=== PATIENT | male | born 1985 | race Caucasian/White ===

== ENCOUNTER 2022-04-02 21:21 | Emergency (ER) | payer SELFPAY ==
[2022-04-02] MEDS ORDERED: METOCLOPRAMIDE 10 MG/2mL INJ ONE (22:32)
[2022-04-02] MEDS ORDERED: MECLIZINE HCL 12.5 MG TAB ONE (22:33)
[2022-04-02] MEDS ORDERED: NA CHLORIDE 0.9% 1,000 ML ONE (22:33)
[2022-04-02 22:56] LABS: Absolute Lymphocytes (CBC) 2.1 K/uL (0.7-4.9); Hematocrit 46.7 % (39.6-49.0); Lymphocytes % 27.9 % (15.3-44.8); MCV 91.4 fL (80-100); MPV 8.1 fL (7.6-11.3); RBC Red Blood Cell Count 5.11 M/uL (4.33-5.43)
--- NOTE | 2022-04-02 23:11 | EDPHYS ---
Physician Documentation [facility] Name: Atul Cintron Age: 36 yrs Sex: Male : 1985 Arrival Date: 04/02/2022 Time: 21:24 Bed 30 Private MD: ED Physician Taran Ortega HPI: 04/02 22:15 This 36 yrs old Male presents to ER via Ambulatory with complaints of Dizziness. cp 22:15 The patient presents with dizziness, feeling faint, lightheadedness, sense of spinning. cp Onset: The symptoms/episode began/occurred 3 day(s) ago. Historical: - Allergies: 21:57 No Known Allergies; vc1 - Home Meds: 21:57 None [Active]; vc1 - PMHx: 21:57 PTSD; vc1 - PSHx: 21:57 None; vc1 - Immunization history:: Adult Immunizations up to date, Client reports receiving the 2nd dose of the Covid vaccine, Flu vaccine is up to date. - Social history:: Smoking status: Patient reports the use of cigarette tobacco products, smokes one pack cigarettes per day. Exam: 22:17 ECG was reviewed by the Attending Physician. cp Vital Signs: 21:49 BP 141 / 89; Pulse 63; Resp 17; Temp 98.0; Pulse Ox 99% on R/A; Weight 81.65 kg; Height vc1 5 ft. 10 in. (177.80 cm); Pain 0/10; 22:42 BP 120 / 73 LA Supine (auto/lg); Pulse 58; Resp 18; Pulse Ox 100% on R/A; jb4 22:43 BP 133 / 85 LA Sitting (auto/lg); Pulse 58; Resp 16; Pulse Ox 100% on R/A; jb4 22:46 BP 149 / 84 LA Standing (auto/lg); Pulse 65; Resp 16; Pulse Ox 100% on R/A; jb4 21:49 Body Mass Index 25.83 (81.65 kg, 177.80 cm) vc1 MDM: 21:39 Patient medically screened. cp 23:12 ED course: VSS. Patient requesting discharge at this time and refuses CT of head and to cp wait for results of pending labs. At this time, CBC resulted and wnl. 04/02 22:11 Order name: Basic Metabolic Panel cp 04/02 22:11 Order name: CBC with Diff; Complete Time: 23:09 cp 04/02 23:09 Interpretation: Reviewed. cp 04/02 22:11 Order name: D-Dimer cp 04/02 22:11 Order name: LFT's cp 04/02 22:11 Order name: Magnesium 04/02 22:11 Order name: NT PRO-BNP 04/02 22:11 Order name: PT-INR 04/02 22:11 Order name: Troponin HS 04/02 22:11 Order name: XRAY Chest (1 view) 04/02 22:11 Order name: ETOH Level cp 04/02 22:11 Order name: UDS cp 04/02 22:11 Order name: Orthostatics; Complete Time: 22:53 cp 04/02 22:11 Order name: EKG; Complete Time: 22:12 cp 04/02 22:11 Order name: Cardiac monitoring; Complete Time: 22:21 cp 04/02 22:11 Order name: EKG - Nurse/Tech; Complete Time: 22:20 04/02 22:11 Order name: IV Saline Lock; Complete Time: 22:37 cp 04/02 22:11 Order name: Labs collected and sent; Complete Time: 22:37 cp 04/02 22:11 Order name: O2 Per Protocol; Complete Time: 22:20 cp 04/02 22:11 Order name: O2 Sat Monitoring; Complete Time: 22:20 cp EC:17 Rate is 58 beats/min. Rhythm is regular. [place] interval is normal. QRS interval is normal. cp QT interval is normal. T waves are Inverted in leads III, aVR. Interpreted by me. Reviewed by me. Administered Medications: 22:29 Drug: Meclizine 25 mg Route: PO; jb4 23:22 Follow up: Response: No adverse reaction jb4 22:52 Drug: NS 0.9% 1000 ml Route: IV; Rate: 1 bolus; Site: right antecubital; jb4 23:22 Follow up: Response: No adverse reaction; IV Status: Order to discontinue infusion; IV jb4 Intake: 500ml 22:52 Drug: Reglan (metoCLOPramide) 10 mg Route: IVP; Site: right antecubital; jb4 23:22 Follow up: Response: No adverse reaction jb4 Disposition Summary: 04/02/22 23:11 Discharge Ordered Location: Home cp Problem: new cp Symptoms: are unchanged cp Condition: Stable cp Diagnosis - Dizziness and giddiness cp Followup: cp - With: Private Physician - When: 1 - 2 days - Reason: Recheck today's complaints Discharge Instructions: - Discharge Summary Sheet cp - Dizziness cp Forms: - Medication Reconciliation Form cp - Thank You Letter cp - Antibiotic Education cp - Prescription Opioid Use cp Prescriptions: - Meclizine 25 mg Oral Tablet - take 1 tablet by ORAL route every 8 hours As needed; 30 tablet; Refills: 0, cp Product Selection Permitted - Zofran 4 mg Oral Tablet - take 1 tablet by ORAL route every 12 hours As needed; 20 tablet; Refills: 0, cp Product Selection Permitted Signatures: Dispatcher [employer] EDMS Sebastián Valentin PA PA cp Bryson, James, RN RN jb4 Denia Rajput RN RN vc1 Corrections: (The following items were deleted from the chart) 21:57 21:57 PMHx: None; vc1 vc1
--- NOTE | 2022-04-02 23:11 | ER ---
Nurse's Notes [facility] Name: Atul Cintron Age: 36 yrs Sex: Male : 1985 Arrival Date: 04/02/2022 Time: 21:24 Bed 30 Private MD: Diagnosis: Dizziness and giddiness Presentation: 04/02 21:49 Chief complaint: Patient states: "For the past couple of days I have felt really dizzy vc1 and lightheaded almost like I am going to pass out.". Coronavirus screen: Vaccine status: Patient reports being unvaccinated. At this time, the client does not indicate any symptoms associated with coronavirus-19. Ebola Screen: No symptoms or risks identified at this time. Initial Sepsis Screen: Does the patient meet any 2 criteria? No. Patient's initial sepsis screen is negative. Does the patient have a suspected source of infection? No. Patient's initial sepsis screen is negative. Risk Assessment: Do you want to hurt yourself or someone else? Patient reports no desire to harm self or others. Onset of symptoms is unknown. 21:49 Method Of Arrival: Ambulatory vc1 21:49 Acuity: LEEANNA 4 vc1 Triage Assessment: 21:59 General: Appears in no apparent distress. comfortable, Behavior is cooperative, vc1 anxious. Pain: Denies pain. Neuro: Level of Consciousness is awake, alert, obeys commands, Oriented to person, place, time, situation, Appropriate for age. Cardiovascular: Reports lightheadedness, Capillary refill < 3 seconds Patient's skin is warm and dry. Respiratory: Airway is patent Respiratory effort is even, unlabored, Respiratory pattern is regular, symmetrical. GI: No deficits noted. : No deficits noted. Derm: No deficits noted. Musculoskeletal: No deficits noted. Historical: - Allergies: 21:57 No Known Allergies; vc1 - Home Meds: 21:57 None [Active]; vc1 - PMHx: 21:57 PTSD; vc1 - PSHx: 21:57 None; vc1 - Immunization history:: Adult Immunizations up to date, Client reports receiving the 2nd dose of the Covid vaccine, Flu vaccine is up to date. - Social history:: Smoking status: Patient reports the use of cigarette tobacco products, smokes one pack cigarettes per day. Screenin:58 Abuse screen: Denies threats or abuse. Nutritional screening: No deficits noted. vc1 Tuberculosis screening: No symptoms or risk factors identified. Fall Risk None identified. Assessment: 23:10 Reassessment: Patient appears in no apparent distress at this time. Patient and/or jb4 family updated on plan of care and expected duration. Pain level reassessed. Patient is alert, oriented x 3, equal unlabored respirations, skin warm/dry/pink. 23:20 Reassessment: Pt verbalized desire to leave prior to the completion of testing and jb4 treatment. Provider notified, informed patient that symptoms could return or worsen and that not all the test had resulted. Pt continues to want to leave, verbally acknowledged risk and signed AMA form. Vital Signs: 21:49 BP 141 / 89; Pulse 63; Resp 17; Temp 98.0; Pulse Ox 99% on R/A; Weight 81.65 kg; Height vc1 5 ft. 10 in. (177.80 cm); Pain 0/10; 22:42 BP 120 / 73 LA Supine (auto/lg); Pulse 58; Resp 18; Pulse Ox 100% on R/A; jb4 22:43 BP 133 / 85 LA Sitting (auto/lg); Pulse 58; Resp 16; Pulse Ox 100% on R/A; jb4 22:46 BP 149 / 84 LA Standing (auto/lg); Pulse 65; Resp 16; Pulse Ox 100% on R/A; jb4 21:49 Body Mass Index 25.83 (81.65 kg, 177.80 cm) vc1 ED Course: 21:24 Patient arrived in ED. bp1 21:37 Sebastián Valentin PA is PHCP. cp 21:37 Taran Ortega MD is Attending Physician. cp 21:57 Triage completed. vc1 21:58 Arm band placed on right wrist. vc1 22:13 Waldo Chen, DIMPLE is Primary Nurse. jb4 22:20 EKG done, by ED staff, reviewed by Sebastián MARTINEZ. wm 22:36 Inserted saline lock: 20 gauge in right antecubital area, using aseptic technique. wm Blood collected. 22:37 Initial lab(s) drawn, by mi, sent to lab. wm 22:38 Safety checks: Door open/sign placed on door:. Call light in reach. Side rails up X2. wm 22:38 Basic Metabolic Panel Sent. wm 22:38 CBC with Diff Sent. wm 22:38 LFT's Sent. wm 22:38 D-Dimer Sent. wm 22:38 Magnesium Sent. wm 22:38 NT PRO-BNP Sent. wm 22:38 PT-INR Sent. wm 22:38 Troponin HS Sent. wm 22:39 XRAY Chest (1 view) In Process Unspecified. EDMS 23:21 No provider procedures requiring assistance completed. IV discontinued, intact, jb4 bleeding controlled, No redness/swelling at site. Pressure dressing applied. Administered Medications: 22:29 Drug: Meclizine 25 mg Route: PO; jb4 23:22 Follow up: Response: No adverse reaction jb4 22:52 Drug: NS 0.9% 1000 ml Route: IV; Rate: 1 bolus; Site: right antecubital; jb4 23:22 Follow up: Response: No adverse reaction; IV Status: Order to discontinue infusion; IV jb4 Intake: 500ml 22:52 Drug: Reglan (metoCLOPramide) 10 mg Route: IVP; Site: right antecubital; jb4 23:22 Follow up: Response: No adverse reaction jb4 Intake: 23:22 IV: 500ml; Total: 500ml. jb4 Outcome: 23:11 Discharge ordered by . fara 23:21 AMA AMA form signed jb4 23:21 Condition: improved 23:21 Discharge instructions given to patient, Instructed on discharge instructions, follow up and referral plans. medication usage, Demonstrated understanding of instructions, follow-up care, medications, Prescriptions given X 2. 23:22 Patient left the ED. jb4 Signatures: Dispatcher [employer] EDIL Sebastián Valentin PA PA cp Bryson, James, RN RN jb4 Iris Joyner Wendy wm Calcote, Vanessa RN RN vc1 Corrections: (The following items were deleted from the chart) 21:57 21:57 PMHx: None; vc1 vc1
[2022-04-02 23:26] LABS: ALT/SGPT 52 U/L (12-78); Albumin 4.1 g/dL (3.4-5.0); Alkaline Phosphatase 105 U/L (45-117); BUN Blood Urea Nitrogen 21 mg/dL (7-18); Bicarbonate 26 mmol/L (21-32); Bilirubin Total 0.4 mg/dL (0.2-1.0); Glomerular Filtration Rate 62 ml/min (=/>90); Glucose Level 105 mg/dL (74-106); NT PRO-BNP 21 pg/mL (<125); Protein, Total 7.4 g/dL (6.4-8.2); Sodium Level 138 mmol/L (136-145)
[2022-04-02 23:27] LABS: AST/SGOT 29 U/L (15-37); Bilirubin Direct < 0.1 mg/dL (0-0.2); Magnesium 2.2 mg/dL (1.8-2.4); Protime INR 1.03; Troponin High Sensitivity < 3.0 pg/mL (<58.9)
[2022-04-02 23:36] VITALS: TEMP 98
[2022-04-02 23:38] VITALS: O2SAT 100
[2022-04-02 23:43] VITALS: BP 149/84
--- NOTE | 2022-04-03 11:07 | EKG ---
Test Date: 2022-04-02 Test Time: 22:12:23 Parts Sales Manager: MEASUREMENT RESULTS: Intervals: Rate: 58 IL: 142 QRSD: 88 QT: 420 QTc: 412 [place]: P: 47 IL: 142 QRS: 79 T: 31 INTERPRETIVE STATEMENTS: Sinus bradycardia Otherwise normal ECG No previous ECG available for comparison Electronically Signed On 04-03-22 11:05:53 CDT by Yosef Mcduffie
--- NOTE | 2022-04-03 13:52 | RAD REPORT ---
EXAM DESCRIPTION: RAD - Chest Single View - 04/02/2022 10:38 pm COMPARISON: None. CLINICAL HISTORY: [facility] dizziness FINDINGS: A single AP view of the chest demonstrates a normal cardiomediastinal silhouette. No pneumothorax or pleural effusion. No consolidation or pulmonary edema. Osseous structures are intact. IMPRESSION: No acute chest process. Electronically signed by: Nader Taylor MD 04/03/2022 12:31 AM CDT Due to temporary technical issues with the PACS/Fluency reporting system, reports are being signed by the in house radiologists without review as a courtesy to insure prompt reporting. The interpreting radiologist is fully responsible for the content of the report.
== END 2022-04-02 23:22 | disposition home or self-care (01) ==
LOC: ER 21:21
DX: R42 Dizziness and giddiness (principal); F17.210 Nicotine dependence, cigarettes, uncomplicated
CPT/HCPCS: 36415; 71045; 80048; 80076; 80320; 83735; 83880; 84484; 85025; 85379; 85610; 93005; J2765; J7030; J8597

== ENCOUNTER 2023-01-24 16:02 | Inpatient (IN) | payer OTHER ==
[2023-01-24] MEDS ORDERED: NA CHLORIDE 0.9% 250 ML ONE (17:07)
[2023-01-24] MEDS ORDERED: NA CHLORIDE 0.9% 1,000 ML ONE (17:07)
[2023-01-24] MEDS ORDERED: VANCOMYCIN 1 GM/VIAL ONE (17:07)
[2023-01-24 17:21] LABS: Lymphocytes % 30.3 % (15.3-44.8); MCV 90.8 fL (80-100); RBC Red Blood Cell Count 4.85 M/uL (4.33-5.43)
[2023-01-24 17:30] LABS: Potassium 3.7 mEq/L (3.5-5.1)
--- NOTE | 2023-01-24 17:57 | EDPHYS ---
Physician Documentation [facility] Name: Joe Cintron Age: 37 yrs Sex: Male : 1985 Arrival Date: 01/24/2023 Time: 16:02 Bed 16 Private MD: ED Physician Boni Cuellar HPI: 01/24 17:51 This 37 yrs old Male presents to ER via Ambulatory with complaints of Leg Pain. kb 17:51 The patient presents with cellulitis of the left calf. Description: erythematous, hot, kb swollen. Onset: The symptoms/episode began/occurred 2 day(s) ago. Possible cause(s): abrasion from screw. Associated signs and symptoms: Pertinent positives: drainage, erythema, swelling. Modifying factors: the symptoms are alleviated by nothing, the symptoms are aggravated by nothing. Severity of symptoms: At their worst the symptoms were moderate, in the emergency department the symptoms are unchanged. The patient has not experienced similar symptoms in the past. The patient has been recently seen at the [facility] Emergency Department, last week. Patient's great left medial calf on a screw 2 days ago. States area has been progressively getting more red, swollen with exudate to abrasions. Patient has been on Doxy and Keflex for 7 days for cellulitis of hand which is better.. Historical: - Allergies: 16:28 No Known Allergies; cm9 - PMHx: 16:28 PTSD; cm9 - PSHx: 16:28 Abdomen - foreign body removal; cm9 - Immunization history:: Client reports having NOT received the Covid vaccine. - Social history:: Smoking status: Patient reports the use of cigarette tobacco products, smokes one pack cigarettes per day. Patient/guardian denies using alcohol. ROS: 17:18 Constitutional: Negative for fever, chills, and weight loss. kb 17:18 Skin: Positive for abrasion(s), cellulitis, of the left calf. 17:18 All other systems are negative. Exam: 17:19 Constitutional: This is a well developed, well nourished patient who is awake, alert, kb and in no acute distress. Head/Face: Normocephalic, atraumatic. ENT: Moist Mucous membranes Cardiovascular: Regular rate and rhythm with a normal S1 and S2. No gallops, murmurs, or rubs. No pulse deficits. Respiratory: Respirations even and unlabored. No increased work of breathing. Talking in full sentences Abdomen/GI: Soft, non-tender. No distention MS/ Extremity: Pulses equal, no cyanosis. Neurovascular intact. Full, normal range of motion. Neuro: Awake and alert, GCS 15, oriented to person, place, time, and situation. Moves all extremities. Normal gait. 17:19 Skin: cellulitis, that is moderate, on the left calf. Vital Signs: 16:24 BP 145 / 88; Pulse 102; Resp 18; Temp 98.2; Pulse Ox 96% on R/A; Weight 90.72 kg; cm9 Height 5 ft. 10 in. ; Pain 1/10; 17:15 BP 114 / 66; Pulse 62; Resp 16; Pulse Ox 97% on R/A; eh3 18:15 BP 128 / 73; Pulse 67; Resp 18; Pulse Ox 98% on R/A; eh3 19:15 BP 148 / 79; Pulse 64; Resp 18; Pulse Ox 95% on R/A; eh3 20:15 BP 160 / 93; Pulse 55; Resp 18; Pulse Ox 97% on R/A; eh3 21:15 BP 149 / 94; Pulse 52; Resp 18; Pulse Ox 98% on R/A; vc1 23:00 BP 138 / 74; Pulse 73; Resp 17; Pulse Ox 99% ; vc1 16:24 Body Mass Index 28.70 (90.72 kg, 177.8 cm) cm9 16:24 Pain Scale: Adult cm9 MDM: 16:10 Patient medically screened. kb 17:19 Data reviewed: vital signs, nurses notes. kb 17:19 Differential diagnosis: abscess, allergic reaction, cellulitis. kb 17:50 Consideration of Admission/Observation Patient was admitted/placed on observation. kb Management of patient was discussed with the following: Hospitalist: Eddy EM accepts pt for admission under Dr Ortega. Counseling: I had a detailed discussion with the patient and/or guardian regarding: the historical points, exam findings, and any diagnostic results supporting the discharge/admit diagnosis, lab results, the need for further work-up and treatment in the hospital. 01/24 16:27 Order name: CBC with Diff; Complete Time: 17:25 kb 01/24 16:27 Order name: Basic Metabolic Panel; Complete Time: 17:32 kb 01/24 16:27 Order name: Lactate w/ 2H reflex if indic.; Complete Time: 17:38 kb 01/24 16:27 Order name: Blood Culture Adult (2) kb 01/25 02:57 Order name: CBC with Automated Diff EDNC 01/25 03:12 Order name: Basic Metabolic Panel EDNC 01/25 03:29 Order name: Hemoglobin A1c EDNC 01/25 13:24 Order name: Wound Culture EDNC 01/24 16:27 Order name: IV Start; Complete Time: 17:24 kb Administered Medications: 17:15 Drug: NS 0.9% IV 1000 ml Route: IV; Rate: 1000 ml; Site: left antecubital; 3 18:30 Follow up: IV Status: Completed infusion; IV Intake: 1000ml eh3 17:30 Drug: vancoMYCIN IVPB 1 grams Route: IVPB; Infused Over: 2 hrs; Site: left antecubital; eh3 19:30 Follow up: Response: No adverse reaction; IV Status: Completed infusion; IV Intake: eh3 250ml Disposition: 19:30 Co-signature as Attending Physician, Boni GUTIÉRREZ was immediately available on-site ms3 in the Emergency Department for consultation in the care of the patient. Disposition Summary: 01/24/23 17:57 Hospitalization Ordered Hospitalization Status: Inpatient Admission kb Condition: Stable kb Problem: new kb Symptoms: are unchanged kb Bed/Room Type: Standard kb Provider: Hugh Peralta(01/24/23 18:48) jl7 [facility] 12[facility]31[facility] eb Room Assignment: [facility](01/25/23 12:31) eb Diagnosis - Cellulitis of left lower limb - Failed outpatient therapy(01/24/23 17:57) kb Forms: - Medication Reconciliation Form kb - SBAR form kb Signatures: Dispatcher [employer] EDMS Rosi Cortez FNP-C FNP-Katie Pierce, RN Vic Enciso RN RN jl7 Padmini Guerrero Marcus, DO DO ms3 Becki Lester RN RN 3 Megan Curry, RN RN cm9 Corrections: (The following items were deleted from the chart) 17:57 17:57 Cellulitis of left lower limb kb kb 18:48 17:57 Iker Ortega kb jl7 20:23 17:57 kb cg 20:43 20:23 415 cg cg 20:47 17:57 Telemetry/[facility] (Inpatient) kb cg 20:47 20:43 cg cg 01/25 12:31 01/24 20:47 BR ER HOLD cg eb 01/25 12:01/24 20:47 ERHOLD- cg eb
--- NOTE | 2023-01-24 17:57 | ER ---
Nurse's Notes [facility] Name: Joe Cintron Age: 37 yrs Sex: Male : 1985 Arrival Date: 01/24/2023 Time: 16:02 Bed 16 Private MD: Diagnosis: Cellulitis of left lower limb-Failed outpatient therapy Presentation: 01/24 16:24 Chief complaint: Patient states: Pt reports left medial calf abrasion caused by leg cm9 getting caught on a screw three days ago; noted spread of redness and warmth from abrasion site. Coronavirus screen: Vaccine status: Patient reports being unvaccinated. At this time, the client does not indicate any symptoms associated with coronavirus-19. Ebola Screen: No symptoms or risks identified at this time. Initial Sepsis Screen: Does the patient meet any 2 criteria? No. Patient's initial sepsis screen is negative. Does the patient have a suspected source of infection? No. Patient's initial sepsis screen is negative. Risk Assessment: Do you want to hurt yourself or someone else? Patient reports no desire to harm self or others. Onset of symptoms was January 24, 2023. 16:24 Method Of Arrival: Ambulatory 9 16:24 Acuity: LEEANNA 3 cm9 Triage Assessment: 16:28 General: Appears in no apparent distress. comfortable, Behavior is calm, cooperative. cm9 Pain: Pain currently is 1 out of 10 on a pain scale. Neuro: Level of Consciousness is awake, alert, obeys commands, Oriented to person, place, time, situation. Cardiovascular: Capillary refill < 3 seconds Patient's skin is warm and dry. Respiratory: Airway is patent Respiratory effort is even, unlabored. Derm:. Musculoskeletal: Range of motion: intact in all extremities, Swelling present in left leg. Injury Description: Laceration sustained to left calf was sustained 3 days. Historical: - Allergies: 16:28 No Known Allergies; cm9 - PMHx: 16:28 PTSD; cm9 - PSHx: 16:28 Abdomen - foreign body removal; cm9 - Immunization history:: Client reports having NOT received the Covid vaccine. - Social history:: Smoking status: Patient reports the use of cigarette tobacco products, smokes one pack cigarettes per day. Patient/guardian denies using alcohol. Screenin:45 [facility] ED Fall Risk Assessment (Adult) Score/Fall Risk Level 0 - 2 = Low Risk. Abuse eh3 screen: Denies threats or abuse. Denies injuries from another. Nutritional screening: No deficits noted. Tuberculosis screening: No symptoms or risk factors identified. Assessment: 16:45 General: Appears in no apparent distress. comfortable, Behavior is calm, cooperative, eh3 appropriate for age. Pain: Complains of pain in left calf. Neuro: Level of Consciousness is awake, alert, obeys commands, Oriented to person, place, time, situation. Cardiovascular: Capillary refill < 3 seconds Patient's skin is warm and dry. Respiratory: Airway is patent Respiratory effort is even, unlabored, Respiratory pattern is regular, symmetrical. GI: Abdomen is round non-distended. : No signs and/or symptoms were reported regarding the genitourinary system. EENT: No signs and/or symptoms were reported regarding the EENT system. Derm: Skin is healthy with good turgor, Skin is pink, warm \T\ dry. Musculoskeletal: Circulation, motion, and sensation intact. Injury Description: Laceration sustained to left calf is 2.6 to 7.5 cm long, not bleeding, was sustained 4 days ago. 17:15 Reassessment: Patient appears in no apparent distress at this time. Patient and/or eh3 family updated on plan of care and expected duration. Pain level reassessed. Patient is alert, oriented x 3, equal unlabored respirations, skin warm/dry/pink. 18:15 Reassessment: Patient appears in no apparent distress at this time. Patient and/or eh3 family updated on plan of care and expected duration. Pain level reassessed. Patient is alert, oriented x 3, equal unlabored respirations, skin warm/dry/pink. 19:15 Reassessment: Patient appears in no apparent distress at this time. Patient and/or eh3 family updated on plan of care and expected duration. Pain level reassessed. Patient is alert, oriented x 3, equal unlabored respirations, skin warm/dry/pink. 20:15 Reassessment: Patient appears in no apparent distress at this time. Patient and/or eh3 family updated on plan of care and expected duration. Pain level reassessed. Patient is alert, oriented x 3, equal unlabored respirations, skin warm/dry/pink. 21:15 Reassessment: Patient appears in no apparent distress at this time. Patient and/or vc1 family updated on plan of care and expected duration. Pain level reassessed. Patient is alert, oriented x 3, equal unlabored respirations, skin warm/dry/pink. 22:00 Reassessment: Patient and/or family updated on plan of care and expected duration. Pain vc1 level reassessed. Patient is alert, oriented x 3, equal unlabored respirations, skin warm/dry/pink. 23:00 Reassessment: Patient and/or family updated on plan of care and expected duration. Pain vc1 level reassessed. Patient is alert, oriented x 3, equal unlabored respirations, skin warm/dry/pink. 01/25 12:35 Reassessment: called 2nd and spoke to Carrie, she will inform the nurse taking the kr3 patient and have them call me back, they do not have a charge nurse today. Vital Signs: 01/24 16:24 BP 145 / 88; Pulse 102; Resp 18; Temp 98.2; Pulse Ox 96% on R/A; Weight 90.72 kg; cm9 Height 5 ft. 10 in. ; Pain 1/10; 17:15 BP 114 / 66; Pulse 62; Resp 16; Pulse Ox 97% on R/A; eh3 18:15 BP 128 / 73; Pulse 67; Resp 18; Pulse Ox 98% on R/A; eh3 19:15 BP 148 / 79; Pulse 64; Resp 18; Pulse Ox 95% on R/A; eh3 20:15 BP 160 / 93; Pulse 55; Resp 18; Pulse Ox 97% on R/A; eh3 21:15 BP 149 / 94; Pulse 52; Resp 18; Pulse Ox 98% on R/A; vc1 23:00 BP 138 / 74; Pulse 73; Resp 17; Pulse Ox 99% ; vc1 16:24 Body Mass Index 28.70 (90.72 kg, 177.8 cm) cm9 16:24 Pain Scale: Adult cm9 ED Course: 15:20 Second set of blood cultures drawn by me. tm3 16:04 Patient arrived in ED. ts1 16:10 Rosi Cortez FNP-C is PHCP. kb 16:10 Boni Cuellar DO is Attending Physician. kb 16:27 Triage completed. cm9 16:28 Arm band placed on left wrist. cm9 16:45 Patient has correct armband on for positive identification. Bed in low position. Call 3 light in reach. Side rails up X2. Adult w/ patient. Pulse ox on. NIBP on. Door closed. Noise minimized. Lights dimmed. Warm blanket given. 16:59 Becki Lester, RN is Primary Nurse. 3 17:00 Initial lab(s) drawn, by me, sent to lab. First set of blood cultures drawn by me. tm3 Inserted saline lock: 22 gauge in left antecubital area, using aseptic technique. 17:56 Iker Ortega MD is Hospitalizing Provider. kb 18:48 Hugh Peralta MD is Hospitalizing Provider. jl7 23:40 No provider procedures requiring assistance completed. Patient admitted, IV remains in vc1 place. 01/25 13:48 Report given to DIMPLE Cedeño 2nd floor. kr3 Administered Medications: 01/24 17:15 Drug: NS 0.9% IV 1000 ml Route: IV; Rate: 1000 ml; Site: left antecubital; 3 18:30 Follow up: IV Status: Completed infusion; IV Intake: 1000ml 3 17:30 Drug: vancoMYCIN IVPB 1 grams Route: IVPB; Infused Over: 2 hrs; Site: left antecubital; eh3 19:30 Follow up: Response: No adverse reaction; IV Status: Completed infusion; IV Intake: eh3 250ml Medication: 23:40 VIS not applicable for this client. vc1 Intake: 18:30 IV: 1000ml; Total: 1000ml. eh3 19:30 IV: 250ml; Total: 1250ml. 3 Outcome: 17:57 Decision to Hospitalize by Provider. kb 23:40 Admitted to ER Hold. Please see [facility] for further documentation. vc1 23:40 Condition: good 23:40 Instructed on the need for admit. 01/25 13:49 Patient left the ED. kr3 Signatures: Rosi Cortez, SALES AND MARKETING DIRECTOR-C SALES AND MARKETING DIRECTOR-Ckb Spencer Bhat 3 Vic Pettit RN RN jl7 Denia Rajput RN RN 1 Becki Lester, DIMPLE RN 3 Tanja Ni RN RN kr3 Megan Curry RN RN cm9 Brenda Dotson PAS PAS ts1
--- NOTE | 2023-01-24 19:41 | P.HP ---
Certification for Inpatient Patient admitted to: Observation With expected LOS: <2 Midnights Patient will require the following post-hospital care: None Practitioner: I am a practitioner with admitting privileges, knowledge of patient current condition, hospital course, and medical plan of care. Services: Services provided to patient in accordance with Admission requirements found in Title 42 Section 412.3 of the Code of Federal Regulations Patient History Date of Service: 01/24/23 Reason for admission: Left lower extremity cellulitis History of Present Illness: 37-year-old male with history of PTSD presents emergency department with concern for infection of his left lower extremity. He was seen here on 01/19/2023 for injury to his hand, stung with catfish shea. At that time he was placed on antibiotics doxycycline/Keflex which she has been taking since then. On Friday he scraped his left medial calf on a table, 2 to 3 days ago he noticed significant erythema, increasing pain and streaking from the area, he has been on the antibiotics Keflex and doxycycline during that time. He presented to the emergency department for evaluation. His labs were normal aside from mild hyperglycemia glucose 132. ED provider wishes to admit under observation for left lower extremity cellulitis. He was given vancomycin in ED. - Past Medical/Surgical History -: PTSD -: Abdominal foreign body removal Psychosocial/ Personal History: Patient lives at home with his - Family History Family History: Reviewed- Non-Contributory - Social History Smoking Status: Current every day smoker Counseled patient to stop smoking for: less than 10 minutes Smoking therapy provided: No (Patient declined) Alcohol use: Yes CD- Drugs: No Caffeine use: Yes Place of Residence: Home Review of Systems 10-point ROS is otherwise unremarkable Musculoskeletal: Leg Pain, As per HPI Physical Examination - Physical Exam General: Alert, In no apparent distress, Oriented x3 HEENT: Atraumatic, PERRLA, Mucous membr. moist/pink, EOMI, Sclerae nonicteric Neck: Supple, 2+ carotid pulse no bruit, No LAD, Without JVD or thyroid abnormality Respiratory: Clear to auscultation bilaterally, Normal air movement Cardiovascular: Regular rate/rhythm, Normal S1 S2 Gastrointestinal: Normal bowel sounds, No tenderness Musculoskeletal: No tenderness Integumentary: Other (Abrasion to left medial calf with surrounding erythema, streaking, tenderness) Neurological: Normal speech, Normal strength at 5/5 x4 extr, Normal tone, Normal affect Lymphatics: No axilla or inguinal lymphadenopathy - Studies Laboratory Data (last 24 hrs) 01/24/23 17:00: Sodium 138, Potassium 3.7, BUN 17, Creatinine 1.24, Glucose 132 H 01/24/23 17:00: WBC 6.60, Hgb 15.1, Hct 44.0, Plt Count 240 Assessment and Plan - Plan Assessment: Cellulitis left lower extremity PTSD Plan: Cellulitis left lower extremity Blood and wound cultures obtained, patient was on Keflex and doxycycline since the , initial injury was on , erythema, tenderness and streaking worsening despite oral antibiotics. Continue IV vancomycin. Repeat CBC in the morning. PTSD Home medications continued. DVT PPX: Lovenox Code status: Full Discharge Plan: Home Plan to discharge in: 24 Hours - Advance Directives Does patient have a Living Will: No Does patient have a Durable POA for Healthcare: No - Code Status/Comfort Care Code Status Assessed: Yes (Full code) Critical Care: No Time Spent Managing Pts Care (In Minutes): 55
[2023-01-24] MEDS ORDERED: TRAZODONE 50 MG TABLET PO PRN (23:44)
[2023-01-24] MEDS ORDERED: ONDANSETRON 4 MG/2 ML VIAL IV PRN (23:44)
[2023-01-24 23:53] VITALS: BMI 28.7
[2023-01-25] MEDS ORDERED: VANCOMYCIN 750 MG in NA CHLORIDE 0.9% 150 ML IVPB ONE ×2
[2023-01-25] MEDS ORDERED: NA CHLORIDE 0.9% 250 ML ONE (00:12)
[2023-01-25] MEDS ORDERED: VANCOMYCIN 1 GM/VIAL ONE (00:12)
[2023-01-25 02:51] LABS: Absolute Lymphocytes (CBC) 2.2 K/uL (0.7-4.9); Hematocrit 41.1 % (39.6-49.0); Lymphocytes % 32.8 % (15.3-44.8); MCV 91.1 fL (80-100); MPV 8.1 fL (7.6-11.3); RBC Red Blood Cell Count 4.51 M/uL (4.33-5.43)
[2023-01-25 03:12] LABS: Potassium 4.1 mEq/L (3.5-5.1)
[2023-01-25] MEDS ORDERED: ENOXAPARIN 40 MG/0.4 ML SQ ONE (08:21)
[2023-01-25] MEDS: ENOXAPARIN 40 MG/0.4 ML SQ SCH (09:00)
[2023-01-25] MEDS ORDERED: VENLAFAXINE HCL 75 MG TABLET PO SCH (09:00)
[2023-01-25] MEDS ORDERED: VANCOMYCIN 1 GM in NA CHLORIDE 0.9% 250 ML IVPB SCH (09:00)
[2023-01-25] MEDS ORDERED: AMPICILLIN/SULBACT 3 GM in NA CHLORIDE 0.9% 100 ML IVPB SCH (10:30)
[2023-01-25] MEDS ORDERED: DOXYCYCLINE 100 MG in NA CHLORIDE 0.9% 100 ML IVPB SCH (10:30)
[2023-01-25] MEDS ORDERED: NA CHLORIDE 0.9% 200 ML ONE (10:51)
[2023-01-25] MEDS ORDERED: HYDROCODONE/APAP 5/325 MG TAB ONE (10:51)
[2023-01-25] MEDS ORDERED: DOXYCYCLINE HYCLATE 100MG INJ ONE (10:51)
[2023-01-25] MEDS ORDERED: AMPICILLIN/SULBACTAM 3GM/VIAL ONE (10:51)
[2023-01-25] MEDS: HYDROCODONE/APAP 5/325 MG TAB PO PRN (10:58)
[2023-01-25] MEDS ORDERED: VANCOMYCIN 1.75 GM in NA CHLORIDE 0.9% 500 ML IVPB SCH (12:30)
--- NOTE | 2023-01-25 14:04 | CON ---
Date of Consultation: 01/25/2023 Reason For Consultation: Infection left leg, foreign body left hand. History Of Present Illness: The patient is a 37-year-old gentleman, who had a hand injury while hand ling a catfish and had the bottom impaled in his left hand. He was seen in the ER and given antibiot ics and he was supposed to follow up with his doctor. However, in the mean time, he scraped his medi al left calf on a table and developed infection in that area and came to the ER with redness, warmth, swelling. No discharge. It appears the wound is more of an abrasion that got infected rather than impalement. The patient denies sore throat, runny nose, cough, headaches, or dizziness. No chest pa in. No fever or chills. Review of Systems: Otherwise unremarkable. Past Medical History: PTSD and foreign body in his abdomen. Past Surgical History: Exploratory laparotomy for that foreign body in his abdomen which was a piece of wood. Allergies: THE PATIENT HAD NO ALLERGIES. Social History: The patient does not smoke. Drinks occasionally. Family History: Noncontributory. Physical Examination: Vital Signs: Stable. He is afebrile. General: He is awake, alert, and oriented x3. Head and Neck: Cranial nerves 2 through 12 are grossly within normal limits. No neck masses. No JV D. Throat clear. Neck: Supple. Chest: Clear. Heart: S1, S2. Abdomen: Soft. Extremities: Neurovascularly intact. Neuro: Nonfocal. Left medial calf region, there is wound that looks like an abrasion with surrounding erythema warmth and edema. There is no fluctuant and there is no deep wound to visualize. On the left dorsum of the hand, there is swelling of the second metacarpophalangeal joint with tenderness. There is no rednes s and there is no open wound. There is a healed wound that appears where the shea entered the hand, but there is no purulent discharge. Assessment: Foreign body left hand with probable infection and cellulitis of left leg. Recommendations: The foreign body in his left hand should be removed. The patient agrees and the le ft leg has cellulitis, does not have an abscess and needs to be no surgical intervention for that at this time. Just IV antibiotics and then oral antibiotics. So plan is to take him with fluoroscopy a nd remove the foreign body in his left hand. The patient understands the risks, benefits, and altern atives and agrees to procedure. SONY/MARAL Voice ID: [id number] Report ID: [id number]
[2023-01-25] MEDS: AMPICILLIN/SULBACT 3 GM in NA CHLORIDE 0.9% 100 ML IVPB SCH (17:09)
--- NOTE | 2023-01-25 17:12 | P.PN ---
Subjective Date of Service: 01/25/23 Chief Complaint: Left lower extremity cellulitis No acute events since admission. He reports pain in his left hand as well as his left lower extremity. He denies any fevers, chills, chest pain, or shortness of breath. Review of Systems 10-point ROS is otherwise unremarkable Musculoskeletal: Hand Pain (left), Leg Pain (left) Physical Examination - Vital Signs Temperature: 98.2 F Blood Pressure: 138/74 Pulse: 73 Respirations: 17 Pulse Ox (%): 96 - Physical Exam General: Alert, In no apparent distress, Oriented x3 HEENT: Atraumatic, Mucous membr. moist/pink, Sclerae nonicteric Neck: JVD not distended Respiratory: Clear to auscultation bilaterally, Normal air movement Cardiovascular: No edema, Regular rate/rhythm, Normal S1 S2, No gallops, No rubs, No murmurs Gastrointestinal: Normal bowel sounds, Soft and benign, Non-distended, No tenderness, No rebound, No guarding Musculoskeletal: No clubbing Integumentary: Tenderness/swelling (left hand between 2nd/3rd MCPs), Erythema (left hand between 2nd/3rd MCPs), Warmth (left hand between 2nd/3rd MCPs), Other (abrasion to left lower leg is with surrounding erythema, tenderness, warmth) Neurological: Normal speech, Normal affect - Studies Laboratory Data (last 24 hrs) 01/24/23 17:00: Sodium 138, Potassium 3.7, BUN 17, Creatinine 1.24, Glucose 132 H 01/24/23 17:00: WBC 6.60, Hgb 15.1, Hct 44.0, Plt Count 240 Assessment And Plan - Plan # Left Hand Puncture Wound with Retained Foreign Body (Catfish Fin) # Left Lower Extremity Abrasion with Superimposed Cellulitis He reports that, about a week ago, a hardhead catfish fin penetrated his hand while he was handling it. He was prescribed cephalexin + doxycycline, without improvement. In the interim, he scraped his medial left lower extremity and developed a superimposed infection. - Evaluation: - Does not meet sepsis criteria - Left hand x-ray (01/19/2023) = "no fracture seen. Moderate soft tissue swelling second digit. Linear foreign body seen adjacent to the second MCP joint." - Management plan: - Consulted General Surgery and spoke with Dr. Hou - recommendations appreciated - Plans to remove foreign body in OR tomorrow - Switched antibiotics to ampicillin-sulbactam + doxycycline - Offered Tdap, but he declined - he stated that he had received a Tdap dose recently (within last couple of years) - PRN pain control - NPO after midnight # Post-Traumatic Stress Disorder - Continue home venlafaxine Hugh Peralta M.D.
[2023-01-25] MEDS: DOXYCYCLINE 100 MG in NA CHLORIDE 0.9% 100 ML IVPB SCH (21:41)
[2023-01-25] MEDS: PRAZOSIN HCL 1 MG CAP PO SCH (21:46)
[2023-01-26] MEDS: AMPICILLIN/SULBACT 3 GM in NA CHLORIDE 0.9% 100 ML IVPB SCH ×4 (00:39→18:01)
[2023-01-26 04:11] LABS: Protime INR 1.11
[2023-01-26 04:15] LABS: Absolute Lymphocytes (CBC) 2.1 K/uL (0.7-4.9); Hematocrit 42.9 % (39.6-49.0); Lymphocytes % 38.1 % (15.3-44.8); MCV 91.9 fL (80-100); MPV 8.4 fL (7.6-11.3); RBC Red Blood Cell Count 4.67 M/uL (4.33-5.43)
[2023-01-26 04:18] LABS: Potassium 4.4 mEq/L (3.5-5.1)
[2023-01-26] MEDS ORDERED: BUPIVACAINE 0.5% PF 10 ML VIAL ONE (07:34)
[2023-01-26] MEDS ORDERED: LIDOCAINE 1% W/EPI 1:100,000 10 ML VIAL ONE (07:34)
[2023-01-26] MEDS ORDERED: BACITRACIN OINTMENT 14 GM TUBE TOP ONE (07:34)
[2023-01-26] MEDS ORDERED: FENTANYL CITR 100 MCG/2 ML ONE (07:45)
[2023-01-26] MEDS ORDERED: ONDANSETRON 4 MG/2 ML VIAL ONE (07:45)
[2023-01-26] MEDS ORDERED: LIDOCAINE 2% MPF 5 ML VIAL ONE (07:45)
[2023-01-26] MEDS ORDERED: MIDAZOLAM HCL 2 MG/2 ML INJ ONE (07:45)
[2023-01-26] MEDS ORDERED: propofoL 200 MG/20 ML VIAL IV ONE (07:45)
[2023-01-26] MEDS ORDERED: Ringers Lactate 1,000 ML IV ONE (07:57)
[2023-01-26] MEDS: DOXYCYCLINE 100 MG in NA CHLORIDE 0.9% 100 ML IVPB SCH ×2 (08:15→20:54)
[2023-01-26] MEDS ORDERED: EPHEDRINE SULF 50 MG/ML VIAL ONE (08:42)
[2023-01-26] MEDS: ENOXAPARIN 40 MG/0.4 ML SQ SCH (09:00)
[2023-01-26] MEDS ORDERED: KETOROLAC 30 MG/ML INJ ONE (09:04)
[2023-01-26] MEDS ORDERED: dexAMETHasone 4 MG/ML VIAL ONE (09:04)
--- NOTE | 2023-01-26 09:11 | P.OP ---
Date of Service: 01/26/23 Preop diagnosis: Foreign body left hand Postop diagnosis: Same Procedure performed: Removal of foreign body left hand, interpretation of intraoperative fluoroscopy Surgeon: Familia Hou MD Pumping Plant Operator: None Estimated blood loss: Minimal Specimen: Foreign body Findings: Fish shea Anesthesia: General Complications: None Drains: None Fluids and blood products: Nonapplicable Disposition: Recovery room Operative note: Patient brought to the OR and placed in supine position. General anesthesia begun. Patient prepped and draped in the usual sterile fashion. Marcaine 0.5% infiltrated locally. Fluoroscopy used to isolate the foreign body in the second third webspace of the left hand. 2 cm incision made. Sharp and blunt dissection utilized, as well as fluoroscopy. A 1.5 cm foreign body, mian valdivia, removed and sent to pathology for identification. Wound irrigated and bleeding controlled with cautery. 3-0 chromic used to reapproximate subcutaneous tissue. 4 nylon used to close wound. Sterile dressing applied. Patient awakened and taken to recovery room in good general condition. CC:
[2023-01-26] MEDS: HYDROMORPHONE HCL 1 MG/ML INJ ONE ×2 (09:25→09:30)
--- NOTE | 2023-01-26 09:45 | RAD REPORT ---
EXAM DESCRIPTION: RAD - Hand Left 2 View - 01/26/2023 9:36 am CLINICAL HISTORY: FB REMOVAL IN OR COMPARISON: Hand Left 3 View dated 01/19/2023 FINDINGS/IMPRESSION: Three intraoperative fluoroscopic images were submitted showing removal of a ra diopaque foreign body between the second and third digits. Fluoro time: 0.1 minutes Two 0 dose: 0.03 mGy
[2023-01-26] MEDS: HYDROCODONE/APAP 5/325 MG TAB PO PRN (12:37)
--- NOTE | 2023-01-26 16:09 | P.PN ---
Subjective Date of Service: 01/26/23 Chief Complaint: Left lower extremity cellulitis He was seen this afternoon on rounds s/p removal of foreign body left hand. He was doing well post-operatively. His pain is well controlled. Per Dr. Hou, plan to continue IV antibiotics today and possibly discharge tomorrow on PO anti biotics. He denies any fevers, chills, chest pain, or shortness of breath. Review of Systems 10-point ROS is otherwise unremarkable Integumentary: Rash (left hand, left leg - cellulitis) Physical Examination - Vital Signs Temperature: 97.0 F Blood Pressure: 115/72 Pulse: 67 Respirations: 16 Pulse Ox (%): 98 Assessment And Plan - Plan - Physical Exam General: Alert, In no apparent distress, Oriented x3 HEENT: Atraumatic, Sclerae nonicteric Neck: JVD not distended Respiratory: Clear to auscultation bilaterally, Normal air movement Cardiovascular: No edema, Regular rate/rhythm, No murmurs Gastrointestinal: Normal bowel sounds, Soft, Non-distended, No tenderness Musculoskeletal: No clubbing Integumentary: Left hand covered in clean surgical dressing. Abrasion to left lower leg is with surrounding erythema, tenderness, warmth Neurological: Normal speech, Normal affect # Left Hand Puncture Wound with Retained Foreign Body (Catfish Fin) # Left Lower Extremity Abrasion with Superimposed Cellulitis He reports that, about a week ago, a hardhead catfish fin penetrated his hand while he was handling it. He was prescribed cephalexin + doxycycline, without improvement. In the interim, he scraped his medial left lower extremity and developed a superimposed infection. - Evaluation: - Does not meet sepsis criteria - Left hand x-ray (01/19/2023) = "no fracture seen. Moderate soft tissue swelling second digit. Linear foreign body seen adjacent to the second MCP joint." - Management plan: - Consulted General Surgery and spoke with Dr. Hou - recommendations appreciated -S/P left hand foreign body removal this morning - - Switched antibiotics to ampicillin-sulbactam + doxycycline - Offered Tdap, but he declined - he stated that he had received a Tdap dose recently (within last couple of years) - PRN pain control - NPO after midnight # Post-Traumatic Stress Disorder - Continue home venlafaxine Hugh Peralta M.D.
[2023-01-26] MEDS: PRAZOSIN HCL 1 MG CAP PO SCH (20:54)
[2023-01-26 22:24] VITALS: O2SAT 98
[2023-01-27] MEDS: AMPICILLIN/SULBACT 3 GM in NA CHLORIDE 0.9% 100 ML IVPB SCH ×2 (00:04→05:46)
[2023-01-27] MEDS ORDERED: AMPICILLIN/SULBACTAM 3GM/VIAL ONE (05:37)
[2023-01-27] MEDS ORDERED: NA CHLORIDE 0.9% 100 ML ONE (05:38)
[2023-01-27 08:02] VITALS: BP 106/69; TEMP 98.6
[2023-01-27] MEDS ORDERED: DOXYCYCLINE 100 MG in NA CHLORIDE 0.9% 100 ML IVPB SCH (09:00)
[2023-01-27] MEDS: ENOXAPARIN 40 MG/0.4 ML SQ SCH (09:32)
--- NOTE | 2023-01-27 15:07 | PN ---
Date of Progress Note: 01/27/2023 Subjective: The patient is awake, alert. No complaint. Objective: Vital Signs: Stable, afebrile. Extremities: Dressing is clean, dry, and intact. Assessment: Status post removal of foreign body in the left hand and cellulitis of left leg. Recommendations: The patient can be discharged home on Augmentin and doxycycline. Follow up with me in 10 days. Discharge instructions and wound care instructions given. /MODL Voice ID: [id number] Report ID: [id number]
== END 2023-01-27 11:28 | disposition home or self-care (01) | DRG 908 ==
LOC: ER 16:02 → ERHOLD 19:11 → 2ND 01-25 13:48 → OBSVTOIN 01-26 16:06
PROVIDERS: ADMIT Internal Medicine; ATTEND Hospitalist
PROC: 0JCK0ZZ Extirpation of Matter from Left Hand Subcutaneous Tissue and Fascia, Open Approach (ICD-10-PCS; principal; 2023-01-26 08:00)
DX: S61.442A Puncture wound with foreign body of left hand, initial encounter (principal); L03.116 Cellulitis of left lower limb; S80.812A Abrasion, left lower leg, initial encounter; F43.10 Post-traumatic stress disorder, unspecified; R73.9 Hyperglycemia, unspecified; F17.210 Nicotine dependence, cigarettes, uncomplicated; Z71.6 Tobacco abuse counseling; Z28.310 Unvaccinated for COVID-19
CPT/HCPCS: 36415; 80048; 83036; 83605; 85025; 85610; 87040; 87070; 87205; 88300; 96365; 96366; 99285; G0378; J0295; J1100; J1170; J1650; J2001; J2250; J2405; J2704; J3010; J7030; J7040; J7050; J7120

== ENCOUNTER 2023-05-03 03:46 | Emergency (ER) | payer OTHER ==
[2023-05-03] MEDS ORDERED: LIDOCAINE 1% MPF 30 ML VIAL ONE (04:06)
[2023-05-03] MEDS ORDERED: TDAP (DIPHTH,PERTUSS(ACELL),TET VAC) 0.5 ML VIAL IMVAC ONE (04:17)
[2023-05-03] MEDS ORDERED: CEPHALEXIN 250 MG CAP ONE (05:08)
[2023-05-03] MEDS ORDERED: BACI/NEOMYCIN/POLY OINT 15GM TOP ONE (05:08)
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
[2023-05-03 06:21] VITALS: TEMP 97.7
[2023-05-03 06:22] VITALS: O2SAT 99
[2023-05-03 06:23] VITALS: BP 112/73
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
== END 2023-05-03 06:17 | disposition home or self-care (01) ==
LOC: ER 03:46
PROC: 0HQ1XZZ Repair Face Skin, External Approach (ICD-10-PCS; principal; 2023-05-03)
DX: S01.81XA Laceration without foreign body of other part of head, initial encounter (principal); Z23 Encounter for immunization
CPT/HCPCS: 70450; 72125; 90471; 99285; 12011; J2001

== ENCOUNTER 2023-07-31 01:41 | Emergency (ER) | payer OTHER ==
[2023-07-31] MEDS ORDERED: LIDOCAINE 1% 20 ML MDV ONE (02:22)
[2023-07-31] MEDS ORDERED: ONDANSETRON 4 MG/2 ML VIAL ONE (02:22)
[2023-07-31] MEDS ORDERED: NA CHLORIDE 0.9% 1,000 ML ONE (02:23)
[2023-07-31 02:42] LABS: Absolute Lymphocytes (CBC) 2.7 K/uL (0.7-4.9); Hematocrit 41.1 % (39.6-49.0); Lymphocytes % 30.6 % (15.3-44.8); MPV 8.6 fL (7.6-11.3); Platelets 241 thou/uL (152-406); RBC Red Blood Cell Count 4.47 M/uL (4.33-5.43)
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
[2023-07-31 02:56] LABS: Potassium 3.8 mEq/L (3.5-5.1)
[2023-07-31] MEDS ORDERED: CEFAZOLIN SODIUM 1 GM/VIAL ONE (03:18)
[2023-07-31] MEDS ORDERED: NA CHLORIDE 0.9% 100 ML ONE (03:18)
[2023-07-31 04:07] VITALS: BP 96/51; TEMP 97.9; O2SAT 96
== END 2023-07-31 03:42 | disposition home or self-care (01) ==
LOC: ER 01:41
PROC: 0HQFXZZ Repair Right Hand Skin, External Approach (ICD-10-PCS; principal; 2023-07-31)
DX: S61.411A Laceration without foreign body of right hand, initial encounter (principal); F17.210 Nicotine dependence, cigarettes, uncomplicated
CPT/HCPCS: 96361; 85025; 80048; 36415; 96375; 96374; 99284; 12002; J2001; J2405; J7030; J0690